=== PATIENT | male | born 1935 | race Caucasian/White ===

== ENCOUNTER → 2016-06-17 | Outpatient (CLI) | payer MEDICARE, OTHER | LOC: LAB 11:00 | PROVIDERS: ATTEND Family Medicine | DX: Z51.81 Encounter for therapeutic drug level monitoring (principal); Z79.01 Long term (current) use of anticoagulants | CPT/HCPCS: 36415; 85610 ==

== ENCOUNTER → 2016-08-12 | Outpatient (CLI) | payer MEDICARE, OTHER | LOC: LAB 10:16 | PROVIDERS: ATTEND Family Medicine | DX: I63.9 Cerebral infarction, unspecified (principal) | CPT/HCPCS: 36415; 85610 ==

== ENCOUNTER → 2016-08-26 | Outpatient (CLI) | payer MEDICARE, OTHER | LOC: LAB 09:47 | PROVIDERS: ATTEND Family Medicine | DX: Z53.8 Procedure and treatment not carried out for other reasons (principal) | CPT/HCPCS: 36415 ==

== ENCOUNTER → 2016-08-28 | Outpatient (CLI) | payer MEDICARE, OTHER | LOC: LAB 08:43 | PROVIDERS: ATTEND Family Medicine | DX: Z51.81 Encounter for therapeutic drug level monitoring (principal); Z79.01 Long term (current) use of anticoagulants | CPT/HCPCS: 36415; 85610 ==

== ENCOUNTER → 2016-10-05 | Outpatient (CLI) | payer MEDICARE, OTHER | LOC: LAB 09:04 | PROVIDERS: ATTEND Family Medicine | DX: I63.9 Cerebral infarction, unspecified (principal) | CPT/HCPCS: 36415; 85610 ==

== ENCOUNTER → 2016-10-13 | Outpatient (CLI) | payer MEDICARE, OTHER ==
--- NOTE | 2016-10-13 14:07 | Diagnostic Imaging Report ---
INDICATION: Right upper quadrant pain after a fall. FINDINGS: There are no findings of right lung contusion, right lung pneumothorax, or hemothorax. There is air within bowel loops in the right upper quadrant interposed between the diaphragm and right hepatic dome. No appreciable free intraperitoneal air, however. No identifiable or displaced rib fracture deformity. The sternal wires are midline and intact. IMPRESSION: No rib fracture deformity is evident. No findings of pulmonary parenchymal or pleural injury. Dictated by: Dictated on workstation # [id number]
== END ==
LOC: RAD 12:39
PROVIDERS: ATTEND Family Medicine
DX: R10.11 Right upper quadrant pain (principal)
CPT/HCPCS: 71100